=== PATIENT | male | born 1950 | race Caucasian/White ===

== ENCOUNTER 2018-08-15 14:24 | Inpatient (IN) | payer SELFPAY ==
[~2018-08-15] VITALS: Ht 175.3 cm; Wt 71.5 kg
--- NOTE | 2018-08-15 15:57 | ERD ---
ER Documentation Chief Complaint Chief Complaint R knee injury d/t mechanical fall today HPI 68 year old male history of type 2 diabetes on metformin and hypertension presents to the emergency department with right knee pain due to a ground-level fall that occurred today. Patient states he has been having swelling and pain in his bilateral lower extremities, right greater than left. He denies fevers, chest pain. Patient admits to having shortness of breath when he starts running. He denies taking any medications for this. ROS All systems reviewed and are negative except as per history of present illness. Allergies Allergies: Coded Allergies: Penicillins (Verified Allergy, Unknown, 08/15/18) Physical Exam Vitals Vital Signs Date Temp Pulse Resp B/P (MAP) Pulse Ox O2 O2 Flow FiO2 Time Delivery Rate 08/15/18 97.9 72 18 144/67 97 Room Air 17:45 (92) 08/15/18 97.3 84 20 154/73 100 14:28 (100) Physical Exam GENERAL: no acute distress, non-toxic appearing, sitting up in bed HENT: normocephalic/atraumatic EYES: conjunctiva is normal NECK: no noticeable or palpable swelling, no carotid bruits, no JVD CARDIOVASCULAR: RRR, good S1S2, no murmurs or gallops heard PULM: clear to auscultation, no use of accessory muscles, no crackles or wheezes. ABDOMEN: normal bowel sounds, abdomen soft and nontender EXT: no edema, cyanosis or clubbing MUSCULOSKELETAL: 5/5 strength, normal range of motion, no swollen or erythematous joints. NEURO: alert and oriented SKIN: Erythema and edema in bilateral lower extremities R > L, erythema in right lower ext extends to mid-calf BREAST: breast exam was not relevant, therefore not preformed PSYCH: normal mood and mentation, denies suicidal or homicidal ideation and thoughts Result Diagram: 08/15/18 1614 08/15/18 1614 Results 24 hrs Laboratory Tests Test 08/15/18 16:14 White Blood Count 7.9 10^3/ul Red Blood Count 4.92 10^6/ul Hemoglobin 13.7 g/dl Hematocrit 41.3 % Mean Corpuscular Volume 83.9 fl Mean Corpuscular Hemoglobin 27.8 pg Mean Corpuscular Hemoglobin Concent 33.2 g/dl Red Cell Distribution Width 13.3 % Platelet Count 203 10^3/UL Mean Platelet Volume 9.6 fl Immature Granulocytes % 0.500 % Neutrophils % 60.7 % Lymphocytes % 26.6 % Monocytes % 9.7 % Eosinophils % 2.0 % Basophils % 0.5 % Nucleated Red Blood Cells % 0.0 /100WBC Immature Granulocytes # 0.040 10^3/ul Neutrophils # 4.8 10^3/ul Lymphocytes # 2.1 10^3/ul Monocytes # 0.8 10^3/ul Eosinophils # 0.2 10^3/ul Basophils # 0.0 10^3/ul Nucleated Red Blood Cells # 0.0 10^3/ul Prothrombin Time 12.5 Sec Prothrombin Time Ratio 1.0 INR International Normalized Ratio 0.92 Activated Partial Thromboplast Time 29.2 Sec Sodium Level 139 mmol/L Potassium Level 4.5 mmol/L Chloride Level 103 mmol/L Carbon Dioxide Level 28 mmol/L Anion Gap 8 Blood Urea Nitrogen 18 mg/dl Creatinine 0.65 mg/dl Est Glomerular Filtrat Rate mL/min > 60 mL/min Glucose Level 200 mg/dl Calcium Level 9.3 mg/dl Total Bilirubin 0.1 mg/dl Direct Bilirubin 0.00 mg/dl Indirect Bilirubin 0.1 mg/dl Aspartate Amino Transf (AST/SGOT) 34 IU/L Alanine Aminotransferase (ALT/SGPT) 19 IU/L Alkaline Phosphatase 104 IU/L Troponin I < 0.012 ng/ml B-Type Natriuretic Peptide 92 PG/ML Total Protein 8.1 g/dl Albumin 4.3 g/dl Globulin 3.80 g/dl Albumin/Globulin Ratio 1.13 Current Medications Medications Dose Sig/Stu Start Time Status Last (Trade) Ordered Route PRN Stop Time Admin Dose Reason Admin Vancomycin 250 ml @ ONCE STAT 08/15/18 08/15/18 HCl 125 mls/hr IVPB 17:28 17:53 08/15/18 19:27 Sodium 1,000 ml @ Q1H ONCE 08/15/18 08/15/18 Chloride 1,000 mls/hr IV 18:00 17:54 08/15/18 18:59 1,000 mg ONCE STAT 08/15/18 DC 08/15/18 Acetaminophen PO 17:49 17:54 (Tylenol 08/15/18 17:50 Tab) Morphine 4 mg ONCE STAT 08/15/18 DC 08/15/18 Sulfate IV 17:49 17:53 (morphine) 08/15/18 17:50 Ondansetron 4 mg ONCE STAT 08/15/18 DC 08/15/18 HCl (Zofran IV 17:49 17:54 Inj) 08/15/18 17:50 Procedures/MDM 68-year-old male 3 of type 2 diabetes on metformin and hypertension presents with cellulitis of the right lower extremity and right knee pain due to a ground-level fall. Patient will be admitted for IV antibiotics and further evaluation management. Patient stable to be transferred to [facility]. I have consulted this case with my supervising physician who will consult hospitalist for admission. Patient does not appear toxic. He is afebrile, there is no leukocytosis. Patient was given vancomycin empirically in the ED. he was given fluid resuscitation and pain has stabilized in the ED with morphine. Chest x-ray did not show any evidence of pulmonary congestion, edema infiltrates. Venous off ultrasound did not show any evidence of DVT. X-ray of the right knee did not show any evidence of any fracture dislocation Departure Diagnosis: Primary Impression: Knee injury Additional Impression: Cellulitis Condition: Stable MYNOR SOLORIO PA-C Aug 15, 2018 15:57
[2018-08-15] MEDS: VANCOMYCIN 1 GM (PMX) 250 ML IVPB STA ×2 (17:39→17:53)
[2018-08-15] MEDS ORDERED: ONDANSETRON 4 MG INJ IV STA (17:49)
[2018-08-15] MEDS ORDERED: ACETAMINOPHEN 500 MG TAB PO STA (17:49)
[2018-08-15] MEDS ORDERED: morphine 4 MG/ML VIAL IV STA (17:49)
[2018-08-15] MEDS ORDERED: SOD CHLORIDE 0.9% 1,000 ML IV ONE (18:00)
[2018-08-15] MEDS ORDERED: METF100010 PO (18:20)
[2018-08-15] MEDS ORDERED: DIPHENHYDRAMINE 50 MG INJ IV ONE (18:30)
[2018-08-15] MEDS ORDERED: CEFTRIAXONE 1 GM/50 ML (PMX) 50 ML IVPB ONE (18:30)
--- NOTE | 2018-08-15 18:43 | HP ---
Date/Time of Note Date/Time of Note DATE: 08/15/18 TIME: 18:40 Assessment/Plan VTE Prophylaxis Pharmacological prophylaxis: heparin Lines/Catheters IV Catheter Type (from Nrsg): Peripheral IV Assessment/Plan Hospital Course 68 yo male with h/o DMII who presents with R knee pain and effusion - Concerning for crystal arthropathy, will tap and send for fluid analysis - MRI knee to evaluate for ligamentous injury DMII - Basal/bolus insulin Dispo when able to walk Result Diagram: 08/15/18 1614 08/15/18 1614 Results 24hrs Laboratory Tests Test 08/15/18 16:14 White Blood Count 7.9 Red Blood Count 4.92 Hemoglobin 13.7 L Hematocrit 41.3 L Mean Corpuscular Volume 83.9 Mean Corpuscular Hemoglobin 27.8 L Mean Corpuscular Hemoglobin Concent 33.2 Red Cell Distribution Width 13.3 Platelet Count 203 Mean Platelet Volume 9.6 Immature Granulocytes % 0.500 H Neutrophils % 60.7 Lymphocytes % 26.6 Monocytes % 9.7 Eosinophils % 2.0 Basophils % 0.5 Nucleated Red Blood Cells % 0.0 Immature Granulocytes # 0.040 H Neutrophils # 4.8 Lymphocytes # 2.1 Monocytes # 0.8 Eosinophils # 0.2 Basophils # 0.0 Nucleated Red Blood Cells # 0.0 Prothrombin Time 12.5 Prothrombin Time Ratio 1.0 INR International Normalized Ratio 0.92 Activated Partial Thromboplast Time 29.2 Sodium Level 139 Potassium Level 4.5 Chloride Level 103 Carbon Dioxide Level 28 Anion Gap 8 Blood Urea Nitrogen 18 Creatinine 0.65 Est Glomerular Filtrat Rate mL/min > 60 Glucose Level 200 Calcium Level 9.3 Total Bilirubin 0.1 L Direct Bilirubin 0.00 Indirect Bilirubin 0.1 Aspartate Amino Transf (AST/SGOT) 34 Alanine Aminotransferase (ALT/SGPT) 19 Alkaline Phosphatase 104 Troponin I < 0.012 B-Type Natriuretic Peptide 92 Total Protein 8.1 Albumin 4.3 Globulin 3.80 H Albumin/Globulin Ratio 1.13 HPI/ROS Admit Date/Time Admit Date/Time Hx of Present Illness 68 yo male with DMII who presents w R knee pain. Patient describes worsening knee pain on R for last 1-2 days. Effusion has developed. Now can't walk. Fell because of pain. Denies any preceding trauma. No fevers or systemic symptoms PMH/Family/Social Past Medical History Medical History: diabetes Medications Current Medications Vancomycin HCl 250 ml @ 125 mls/hr ONCE STAT IVPB Last administered on 08/15/18at 17:53; Admin Dose 125 MLS/HR; Start 08/15/18 at 17:28; Stop 08/15/18 at 19:27 Sodium Chloride 1,000 ml @ 1,000 mls/hr Q1H ONCE IV Last administered on 08/15/18at 17:54; Admin Dose 1,000 MLS/HR; Start 08/15/18 at 18:00; Stop 08/15/18 at 18:59 Ceftriaxone Sodium 50 ml @ 100 mls/hr ONCE ONCE IVPB Last administered on 08/15/18at 18:22; Admin Dose 100 MLS/HR; Start 08/15/18 at 18:30; Stop 08/15/18 at 18:59 Coded Allergies: vancomycin (Verified Allergy, Severe, 08/15/18) Penicillins (Verified Allergy, Unknown, 08/15/18) Past Surgical History Past Surgical Hx: no surgical history Family History Significant Family History: no pertinent family hx Social History Alcohol Use: none Smoking Status: Current every day smoker Drug Use: none Exam/Review of Systems Vital Signs Vitals Vital Signs Date Temp Pulse Resp B/P (MAP) Pulse Ox O2 O2 Flow FiO2 Time Delivery Rate 08/15/18 97.9 72 18 144/67 97 Room Air 17:45 (92) Exam Exam Well appearing in NAD AOx3 RRR CTAB Soft nt nd R knee with mild effusion. Limited in AROM to 45. Mildy warm. No erythema Venous stasis changes of b/l legs QUENTIN ARENAS MD Aug 15, 2018 18:43
[2018-08-15] MEDS ORDERED: NACL 0.9% 3 ML SYG IV SCH (19:00)
[2018-08-15 20:32] VITALS: BP 140/67; PULSE 76; RESP 20
[2018-08-15 20:49] VITALS: Ht 175.3 cm; Wt 71.5 kg
[2018-08-15] MEDS ORDERED: DEXTROSE 50% 50 ML SYRINGE IV PRN ×2 (23:00)
[2018-08-15] MEDS ORDERED: GLUCOSE GEL 15 GRAM TUBE BUCCAL PRN (23:00)
[2018-08-15] MEDS ORDERED: PENDING SANTYL ORDER FOR WOUND CARE XX PRN (23:00)
[2018-08-15] MEDS ORDERED: GLUCAGON 1 MG INJ IM PRN (23:00)
[2018-08-15] MEDS ORDERED: GLUCOSE GEL 15 GRAM TUBE PO PRN ×2 (23:00)
[2018-08-16] MEDS ORDERED: ACCU-CHEK XX SCH (02:00)
[2018-08-16 02:50] VITALS: BP 144/76; PULSE 81; RESP 18
[2018-08-16] MEDS: INSULIN ASPART [NOVOLOG] 3 ML PEN SC SCH ×2 (07:50→12:13)
[2018-08-16 09:35] VITALS: BP 152/68; PULSE 63; RESP 18
[2018-08-16] MEDS ORDERED: LIDOCAINE 1% (MPF) 5 ML VIAL ONE (11:05)
[2018-08-16 11:10] VITALS: BP 140/68; PULSE 68; RESP 18
[2018-08-16 11:30] VITALS: BP 135/64; PULSE 64; RESP 17
--- NOTE | 2018-08-16 11:48 | HPN ---
Date/Time of Note Date/Time of Note DATE: 08/16/18 TIME: 11:48 Interval H&P Admission Note Pt. seen H&P reviewed: No system changes KLEBER HUDSON MD Aug 16, 2018 11:48
--- NOTE | 2018-08-16 14:36 | PDOCDIS ---
Discharge Instructions DIAGNOSIS Discharge Diagnosis Meniscal tear Joint effusion CONDITION [id number] Patient Condition: [id number] Good HOME CARE INSTRUCTIONS: [id number] Special Diet: [id number] carb controlled FOLLOW UP/APPOINTMENTS Follow-up Plan Make an appointment to see an orthopedist to manage your knee pain Take ibuprofen as needed for pain QUENTIN ARENAS MD Aug 16, 2018 14:36
--- NOTE | 2018-08-16 14:37 | DS ---
Date/Time of Note Date/Time of Note DATE: 08/16/18 TIME: 14:37 Discharge Summary Admission/Discharge Info Admit Date/Time Aug 15, 2018 at 18:07 Discharge Date/Time Discharge Diagnosis Meniscal tear Joint effusion Patient Condition: Stable Hx of Present Illness 68 yo male with DMII who presents w R knee pain. Patient describes worsening knee pain on R for last 1-2 days. Effusion has developed. Now can't walk. Fell because of pain. Denies any preceding trauma. No fevers or systemic symptoms Hospital Course 68 yo male with h/o DMII who presents with R knee pain and effusion He underwent MRI showign 1. Small peripheral vertical tear of the posterior horn medial meniscus with intrasubstance degeneration. Mild adjacent marrow edema within the posterior medial tibial plateau. 2. 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 Mild partial-thickness chondral loss and fraying within the medial trochlea. 3. Moderate joint effusion with mild synovitis. 4. Several prominent lymph nodes within the posterior knee posterior to the distal femur measuring up to 12 mm which may be reactive in which correlation for infection, inflammation, or malignancy is recommended. 5. No acute ligament tears. No acute fracture. Effusion was tapped. Studies were negative for inflammation. There was no evidence of crystals. He was discharged and encouraged to follow up with an orhtopedist as an outpatient Home Meds Reported Medications Metformin Hcl* (Metformin Hcl*) 1,000 Mg Tablet, 1000 MG PO WITH BREAKFAST DINNE, #60 TAB 08/15/18 Follow-up Plan Make an appointment to see an orthopedist to manage your knee pain Take ibuprofen as needed for pain Primary Care Provider Care Physician No Primary Pending Labs Laboratory Tests Test 08/15/18 16:14 08/15/18 20:42 08/15/18 23:20 08/16/18 05:55 White Blood 7.9 7.9 Count 10^3/ul (4.8-10 10^3/ul (4.8-1 .8) 0.8) Red Blood 4.92 4.74 Count 10^6/ul (4.70-6 10^6/ul (4.70- .10) 6.10) Hemoglobin 13.7 13.0 g/dl (14.0-18.0 g/dl (14.0-18. ) 0) Hematocrit 41.3 39.7 % (42.0-52.0) % (42.0-52.0) Mean 83.9 83.8 Corpuscular fl (82.0-101.0) fl (82.0-101.0 Volume ) Mean 27.8 27.4 Corpuscular pg (29.0-33.0) pg (29.0-33.0) Hemoglobin Mean 33.2 32.7 Corpuscular g/dl (32.0-37.0 g/dl (32.0-37. Hemoglobin Conc ) 0) ent Red Cell 13.3 12.8 Distribution % (11.5-14.5) % (11.5-14.5) Width Platelet Count 203 199 10^3/UL (140-41 10^3/UL (140-4 5) 15) Mean Platelet 9.6 9.6 Volume fl (7.4-10.4) fl (7.4-10.4) Immature 0.500 0.400 Granulocytes % % (0.001-0.429) % (0.001-0.429 ) Neutrophils % 60.7 63.5 % (39.0-77.0) % (39.0-77.0) Lymphocytes % 26.6 24.2 % (15.0-51.0) % (15.0-51.0) Monocytes % 9.7 9.0 % (0.0-11.0) % (0.0-11.0) Eosinophils % 2.0 % (0.0-7.0) 2.4 % (0.0-7.0) Basophils % 0.5 % (0.0-2.0) 0.5 % (0.0-2.0) Nucleated Red 0.0 0.0 Blood Cells % /100WBC (0.0-0. /100WBC (0.0-0 0) .0) Immature 0.040 0.030 Granulocytes # 10^3/ul (0.0-0. 10^3/ul (0.0-0 031) .031) Neutrophils # 4.8 5.0 10^3/ul (1.6-7. 10^3/ul (1.6-7 5) .5) Lymphocytes # 2.1 1.9 10^3/ul (0.8-2. 10^3/ul (0.8-2 9) .9) Monocytes # 0.8 0.7 10^3/ul (0.3-0. 10^3/ul (0.3-0 9) .9) Eosinophils # 0.2 0.2 10^3/ul (0.0-0. 10^3/ul (0.0-0 5) .5) Basophils # 0.0 0.0 10^3/ul (0.0-0. 10^3/ul (0.0-0 1) .1) Nucleated Red 0.0 0.0 Blood Cells # 10^3/ul (0.0-0. 10^3/ul (0.0-0 0) .0) Prothrombin 12.5 Time Sec (11.9-14.9) Prothrombin 1.0 Time Ratio INR 0.92 International Normalized Rati o Activated 29.2 Partial Thrombo Sec (23.0-35.0) plast Time Sodium Level 139 137 mmol/L (135-144 mmol/L (135-14 ) 4) Potassium 4.5 4.3 Level mmol/L (3.5-5.1 mmol/L (3.5-5. ) 1) Chloride Level 103 106 mmol/L (97-110) mmol/L (97-110 ) Carbon Dioxide 28 26 Level mmol/L (21-31) mmol/L (21-31) Anion Gap 8 (5-13) 5 (5-13) Blood Urea 18 mg/dl (7-20) 13 Nitrogen mg/dl (7-20) Creatinine 0.65 0.62 mg/dl (0.61-1.2 mg/dl (0.61-1. 4) 24) Est Glomerular > 60 > 60 Filtrat mL/min (>60) mL/min (>60) Rate mL/min Glucose Level 200 111 mg/dl (70-220) mg/dl (70-220) Calcium Level 9.3 8.6 mg/dl (8.4-10.2 mg/dl (8.4-10. ) 2) Total 0.1 0.1 Bilirubin mg/dl (0.2-1.3) mg/dl (0.2-1.3 ) Direct 0.00 0.00 Bilirubin mg/dl (0.00-0.2 mg/dl (0.00-0. 0) 20) Indirect 0.1 0.1 Bilirubin mg/dl (0-1.1) mg/dl (0-1.1) Aspartate Amino 34 IU/L (15-46) 26 Transf (AST/SGO IU/L (15-46) T) Alanine 19 IU/L (13-69) 19 Aminotransferas IU/L (13-69) e (ALT/SGPT) Alkaline 104 103 Phosphatase IU/L (42-121) IU/L (42-121) Troponin I < 0.012 ng/ml (0.000-0. 120) B-Type 92 Natriuretic PG/ML (0-125) Peptide Total Protein 8.1 6.8 g/dl (6.1-8.1) g/dl (6.1-8.1) Albumin 4.3 3.5 g/dl (3.3-4.9) g/dl (3.3-4.9) Globulin 3.80 3.30 g/dl (1.3-3.2) g/dl (1.3-3.2) Albumin/Globuli 1.13 1.06 n Ratio Bedside 127 113 Glucose mg/dL (70-220) mg/dL (70-220) Hemoglobin A1c 7.5 % (0-5.9) Test 08/16/18 07:50 08/16/18 11:25 08/16/18 12:12 Bedside 121 247 Glucose mg/dL (70-220) mg/dL (70-220) Synovial Fluid RIGHT KNEE Source Synovial Fluid LIGHT YELLOW Color Synovial Fluid CLOUDY Appearance Synovial Fluid 17.0 Volume mL (0-3.5) Synovial Fluid 297 WBC /cmm (0-150) Synovial Fluid 26.9 Polynuclear WBC % (0.0-25.0) s % Synovial Fluid 73.1 & Mononuclear WBC s % Synovial Fluid (None seen) Crystals QUENTIN ARENAS MD Aug 16, 2018 14:37
[2018-08-16 15:33] VITALS: BP 148/67; PULSE 64; RESP 18
== END 2018-08-16 16:05 | disposition home or self-care (01) | DRG 603 ==
LOC: FTE 14:24 → PP2 18:07 → CANRESERV 19:38
PROVIDERS: ADMIT Internal Medicine; ATTEND Internal Medicine
DX: L03.115 Cellulitis of right lower limb (principal); M25.561 Pain in right knee; W18.30XA Fall on same level, unspecified, initial encounter; I10 Essential (primary) hypertension; E11.9 Type 2 diabetes mellitus without complications; Z72.0 Tobacco use; S83.206A Unspecified tear of unspecified meniscus, current injury, right knee, initial encounter; M25.461 Effusion, right knee
CPT/HCPCS: 71045; 73562; 73721; 80053; 82962; 83036; 83880; 84484; 85025; 85610; 85730; 87040; 87070; 89060; 93970; 96374; 96375; J0696; J1200; J1815; J2270; J2405; J3370; J7030

== ENCOUNTER 2018-08-25 17:46 | Emergency (ER) | payer SELFPAY ==
[~2018-08-25] VITALS: Ht 170.2 cm; Wt 73.6 kg
[~2018-08-25 17:46] MED LIST: METF100010 PO
[2018-08-25 17:55] VITALS: BP 165/70; PULSE 74; RESP 18; Ht 170.2 cm; Wt 73.6 kg
== END 2018-08-25 19:53 | disposition left against medical advice (07) ==
LOC: E/R 17:46
DX: Z53.21 Procedure and treatment not carried out due to patient leaving prior to being seen by health care provider (principal)